=== PATIENT | male | born 1965 | race African-American/Black ===

== ENCOUNTER 2017-08-30 20:38 | Emergency (ER) | payer OTHER, SELFPAY ==
[2017-08-30] MEDS ORDERED: methylPREDNISolone Sod Succ/PF 125 MG/2 ML VIAL ONE (21:01)
[2017-08-30 22:04] LABS: Anion Gap 19 mmol/L (10-20); BUN (Urea Nitrogen) 9 mg/dL (8.4-25.7); Calc. Creatinine Clearance 0 mL/min (70-130); Carbon Dioxide 17 mmol/L (22-29); Chloride 111 mmol/L (98-107); Estimated GFR-MDRD 67; Glucose 110 mg/dL (70-105); Potassium 3.3 mmol/L (3.5-5.1); Sodium 144 mmol/L (136-145)
[2017-08-30] MEDS ORDERED: Ondansetron HCl/PF 4 MG/2 ML Vial ONE (22:29)
[2017-08-30] MEDS ORDERED: Potassium Chloride 20 MEQ TAB ONE (23:41)
== END 2017-08-30 23:39 | disposition home or self-care (01) ==
LOC: BURERS 20:38
DX: T78.40XA Allergy, unspecified, initial encounter (principal)
CPT/HCPCS: 36415; 80048; 96374; 96375; J2405; J2930